=== PATIENT | female | born 1985 ===

== ENCOUNTER 2017-06-27 21:18 | Emergency (ER) | payer OTHER ==
[2017-06-27 21:18] VITALS: BMI 30.4
[2017-06-27 21:38] VITALS: BP 116/71; PULSE 83; RESP 16; TEMP 98.4; O2SAT 98
[2017-06-27 22:55] LABS: BASO % 0.2 % (0.0-2.0); EOS % 0.4 % (0.0-4.0); HEMOGLOBIN 14.2 g/dL (12.0-16.0); LYMPH # 1.3 K/uL (1.0-4.3); LYMPH % 11.3 % (20.0-40.0); MEAN CORPUSCULAR HEMOGLOBIN 28.4 pg (27.0-31.0); MEAN PLATELET VOLUME 8.2 fl (7.2-11.7); MONO # 0.5 K/uL (0.0-0.8); MONO % 4.3 % (0.0-10.0); NEUT # 9.7 K/uL (1.8-7.0); NEUT % 83.8 % (50.0-75.0); RBC 4.99 Mil/uL (3.80-5.20); RED CELL DISTRIBUTION WIDTH 14.1 % (11.5-14.5); WHITE BLOOD COUNT 11.6 K/uL (4.8-10.8)
[2017-06-27 22:58] LABS: BLOOD UREA NITROGEN 10 mg/dl (7-17); CALCIUM 10.6 mg/dL (8.4-10.2); GFR AFRICAN-AMERICAN > 60; GFR NON-AFRICAN AMERICAN > 60
[2017-06-27 23:07] LABS: SQUAMOUS EPITHIAL 1 /hpf (0-5); URINE BILIRUBIN NEGATIVE (NEGATIVE); URINE BLOOD NEGATIVE (NEGATIVE); URINE CLARITY SLIGHTY-CLOUDY (Clear); URINE COLOR STRAW (YELLOW); URINE GLUCOSE (UA) 50 mg/dL (Normal); URINE LEUKOCYTE ESTERASE NEG Leu/uL (Negative); URINE NITRATE NEGATIVE (NEGATIVE); URINE PROTEIN NEGATIVE (NEGATIVE); URINE UROBILINOGEN 0.2-1.0 mg/dL (0.2-1.0)
--- NOTE | 2017-06-27 23:17 | ED PDOC ---
HPI: Female Pain Time Seen by Provider: 06/27/17 21:48 Chief Complaint (Nursing): Female Genitourinary Chief Complaint (Provider): Female genitourinary History Per: Patient History/Exam Limitations: no limitations Onset/Duration Of Symptoms: Days (x3 weeks) Current Symptoms Are (Timing): Still Present Quality Of Discomfort: Cramping Associated Symptoms: Other (headache). denies: Fever, Nausea, Vomiting, Urinary Symptoms Additional Complaint(s): Ada Kennedy is a 31 year old female, with no past medical history, who presents to the emergency department with spotting onset since today, crampy lower abdominal pain for the past x3 weeks and a headache onset for x4 days. Patient states she noticed blood in underwear today, and reports an on and off lower abdominal pain. She wanted to come in today to make sure "everything was fine with the baby." She denies any urinary symptoms, vomit, nausea or fever. No further medical complaints. PMD: None provided. : 2 Para: 1 Miscarriage: 0 Past Medical History Reviewed: Historical Data, Nursing Documentation, Vital Signs Vital Signs: Last Vital Signs Temp 98.4 F 06/27/17 21:35 Pulse 83 06/27/17 21:35 Resp 16 06/27/17 21:35 BP 116/71 06/27/17 21:35 Pulse Ox 98 06/27/17 21:35 - Medical History PMH: No Chronic Diseases - Surgical History Surgical History: No Surg Hx - Family History Family History: States: Unknown Family Hx - Social History Current smoker - smoking cessation education provided: No Alcohol: None Drugs: Denies - Allergies Allergies/Adverse Reactions: Allergies Allergy/AdvReac Type Severity Reaction Status Date / Time No Known Allergies Allergy Verified 10/07/15 00:38 Review of Systems ROS Statement: Except As Marked, All Systems Reviewed And Found Negative Constitutional: Negative for: Fever Gastrointestinal: Positive for: Abdominal Pain (cramp, lower). Negative for: Nausea, Vomiting Genitourinary Female: Positive for: Vaginal Bleeding (spotting). Negative for: Dysuria Neurological: Positive for: Headache Physical Exam - Reviewed Nursing Documentation Reviewed: Yes Vital Signs Reviewed: Yes - Physical Exam Appears: Positive for: Non-toxic, No Acute Distress Head Exam: Positive for: ATRAUMATIC, NORMAL INSPECTION Skin: Positive for: Normal Color, Warm, Dry Eye Exam: Positive for: Normal appearance Neck: Positive for: Normal, Painless ROM, Supple Cardiovascular/Chest: Positive for: Regular Rate, Rhythm. Negative for: Murmur Respiratory: Positive for: Normal Breath Sounds. Negative for: Respiratory Distress Gastrointestinal/Abdominal: Positive for: Normal Exam, Soft. Negative for: Tenderness, Guarding, Rebound Pelvic Exam: Positive for: External Exam Normal (cervical os closed, no tenderness), Other (electronic equipment maint tech: Elisabeth Anderson). Negative for: Blood Extremity: Positive for: Normal ROM. Negative for: Deformity Neurologic/Psych: Positive for: Alert, Oriented - Laboratory Results Result Diagrams: 06/27/17 22:32 06/27/17 22:32 - ECG O2 Sat by Pulse Oximetry: 98 (RA) Pulse Ox Interpretation: Normal Medical Decision Making Medical Decision Making: Time: 23:20 Initial Impression: threatened vs round ligament pain Initial Plan: --Beta-HCG, quantitative --Urine dipstick --Urine --Tylenol 650 mg PO --Urinalysis --OB Transvaginal [US] --reevaluation 11:58 Transvag US FINDINGS: Gestation: There is a single living intrauterine a sonographic gestational age 11 weeks 0 days, KAROLYN January 16, 2018. Embryonic heart rate 165 beats per minute. Placenta/amniotic fluid: There are 2 regions of likely subchorionic hemorrhage, the largest region measuring a maximum of 3.4 cm. Uterus/cervix: Cervical length is 4.6 cm and the internal os appears to be closed. No myometrial mass. Ovaries: The right ovary was not visualized. The left ovary appears unremarkable with normal Doppler flow. Free fluid: No free fluid. IMPRESSION: 1. There is a single living intrauterine a sonographic gestational age 11 weeks 0 days, KAROLYN January 16, 2018. 2. There are 2 regions of likely subchorionic hemorrhage, the largest region measuring a maximum of 3.4 cm. 0000 Pt. feeling much better, results given. strict pelvic rest was encouraged until f/u w/ OB (nothing intravaginal, no strenuous activity, etc.). Encouraged close f/u w/ OB. Return precautions discussed. Scribe Attestation: Documented by Mohinder Garcia acting as a scribe for Hernan Posey MD. Scribe Attestation: All medical record entries made by the Scribe were at my direction and personally dictated by me. I have reviewed the chart and agree that the record accurately reflects my personal performance of the history, physical exam, medical decision making, and the department course for this patient. I have also personally directed, reviewed, and agree with the discharge instructions and disposition. Disposition - Clinical Impression Clinical Impression: Vaginal bleeding in , Threatened - Disposition [facility] Disposition: Routine/Home Disposition Time: 00:00 Condition: STABLE Instructions: Threatened Miscarriage (ED), Abdominal Pain in (ED) Forms: Needl (Kazakh) Print Language: SWEDISH
--- NOTE | 2017-06-28 08:19 | US ---
PROCEDURE: OB Pelvic Ultrasound HISTORY: 11wks , VB COMPARISON: None available. FINDINGS: UTERUS: Gestational sac: There is a single live intrauterine gestation identified. Heart rate: 164 bpm. age (Ultrasound estimated): 11 weeks and 0 days. Natasha-gestational hemorrhage: There is evidence of a 34 millimeter x 6 millimeter x 23 millimeter subchorionic hemorrhage. Additionally there is an 8 millimeter x 13 millimeter x 10 millimeter subchorionic hemorrhage. Date of delivery (Ultrasound estimated) : 01/16/2018 based on this ultrasound exam Uterus measures 12 x 9 x 7 cm. Normal in size and appearance. CERVIX: Long and closed. No cervical abnormality seen. RIGHT OVARY: Measures ------- cm. Right ovary was not adequately seen. No right adnexal masses are noted. LEFT OVARY: Measures 2.3 x 3.0 x 1.3 cm. No solid mass. Normal flow. FREE FLUID: None. OTHER FINDINGS: None. IMPRESSION: Single live intrauterine gestation with an estimated gestational age of 11 weeks and 0 days. There are 2 new hypoechoic collections adjacent to the gestational sac most suggestive of prior subchorionic hemorrhage. Correlation with symptoms is suggested. No adnexal masses. This agrees with preliminary report.
== END 2017-06-28 00:50 | disposition home or self-care (01) ==
LOC: H.ER 21:18
DX: O20.0 Threatened abortion (principal); Z3A.11 11 weeks gestation of pregnancy